=== PATIENT | female | born 1965 | race Caucasian/White ===

== ENCOUNTER 2019-04-26 16:11 | Emergency (ER) | payer BC ==
[~2019-04-26] VITALS: Ht 172.7 cm; Wt 95.3 kg
--- NOTE | 2019-04-26 16:20 | NUR ---
PATIENT WAS MSE BY DR REICH IN ROOM 01A.
[2019-04-26] MEDS ORDERED: MORPHINE SULFATE 4 MG/1 ML DISP.SYRIN ONE (16:27)
[2019-04-26] MEDS ORDERED: ONDANSETRON 4 MG/2 ML VIAL ONE (16:27)
[2019-04-26] MEDS ORDERED: MORPHINE SULFATE 2 MG/1 ML DISP.SYRIN IV ONE (16:30)
[2019-04-26] MEDS ORDERED: ONDANSETRON 4 MG/2 ML VIAL IV ONE (16:30)
[2019-04-26] MEDS ORDERED: HYDROMORPHONE 1 MG/1 ML DISP.SYRIN ONE (16:52)
[2019-04-26] MEDS ORDERED: HYDROMORPHONE 1 MG/1 ML DISP.SYRIN IV ONE (17:00)
[2019-04-26] MEDS ORDERED: KETOROLAC TROMETHAMINE 30 MG INJ IVP ONE (17:15)
[2019-04-26] MEDS ORDERED: KETOROLAC TROMETHAMINE 30 MG INJ ONE (17:15)
--- NOTE | 2019-04-26 17:50 | NUR ---
pt was d/c'D to home after dr casey evaluation. d/c instructions given to the pt.
[2019-04-26 17:52] VITALS: BP 139/75
== END 2019-04-26 17:53 | disposition home or self-care (01) ==
LOC: ER 16:15
DX: S42.201A Unspecified fracture of upper end of right humerus, initial encounter for closed fracture (principal); W22.8XXA Striking against or struck by other objects, initial encounter; Y93.61 Activity, american tackle football; Y92.89 Other specified places as the place of occurrence of the external cause; Y99.8 Other external cause status
CPT/HCPCS: 29105; 73030; 96374; 96375; 99283; J1170; J1885; J2270; J2405; A4663; J7030

== ENCOUNTER 2019-05-03 19:32 | Emergency (ER) | payer BC ==
[~2019-05-03] VITALS: Ht 172.7 cm; Wt 95.3 kg
[2019-05-03] MEDS ORDERED: ONDA4TAB5 PO (19:52)
[2019-05-03] MEDS ORDERED: ONDANSETRON 4 MG/2 ML VIAL IV ONE (20:00)
[2019-05-03] MEDS ORDERED: IV NORMAL SALINE 1000 ML BAG IV ONE (20:00)
[2019-05-03] MEDS ORDERED: ONDANSETRON 4 MG/2 ML VIAL ONE (20:04)
[2019-05-03 20:16] LABS: BASOPHILS % (AUTO) 0.8 % (0.0-2.0); EOSINOPHILS % (AUTO) 0.1 % (0.0-7.0); HEMATOCRIT 37.7 % (31.2-41.9); HEMOGLOBIN 12.6 g/dL (10.9-14.3); LYMPHOCYTES # (AUTO) 0.8 K/uL (20.0-40.0); LYMPHOCYTES % (AUTO) 14.9 % (20.5-51.5); MEAN CORPUSCULAR HEMOGLOBIN 31.3 uug (24.7-32.8); MEAN CORPUSCULAR HGB CONC 33 g/dL (32.3-35.6); MEAN CORPUSCULAR VOLUME 93.9 fL (75.5-95.3); MONOCYTES # (AUTO) 0.8 K/uL (2.0-10.0); NEUTROPHILS # (AUTO) 3.6 K/uL (1.8-8.9); NEUTROPHILS % (AUTO) 69.2 % (38.5-71.5); PLATELET COUNT (AUTO) 216 K/uL (179-408); RED BLOOD CELL COUNT(AUTO) 4.01 MIL/uL (3.63-4.92); WHITE BLOOD COUNT (AUTO) 5.1 K/uL (3.8-11.8)
[2019-05-03 20:29] LABS: BAND % (MANUAL) 5 % (0-10); LYMPHOCYTES % (MANUAL) 14 % (20-40); MONOCYTES % (MANUAL) 13 % (2-10); NEUTROPHILS % (MANUAL) 68 % (42-75)
[2019-05-03 20:30] LABS: BILIRUBIN,DIRECT 0.2 mg/dL (0.0-0.2); CREATININE 1.1 mg/dL (0.6-1.3); POTASSIUM 3.4 mmol/L (3.5-5.1); TOTAL PROTEIN, SERUM 7.4 g/dL (6.4-8.2)
[2019-05-03] MEDS ORDERED: diphenhydrAMINE 50 MG/1 ML VIAL IV ONE (20:45)
[2019-05-03] MEDS ORDERED: METOCLOPRAMIDE HCL 10 MG/2 ML VIAL IV ONE (20:45)
[2019-05-03] MEDS ORDERED: METOCLOPRAMIDE HCL 10 MG/2 ML VIAL ONE (20:51)
[2019-05-03] MEDS ORDERED: diphenhydrAMINE 50 MG/1 ML VIAL ONE (20:51)
--- NOTE | 2019-05-03 22:03 | NUR ---
IV removed. Catheter intact and site benign. Pressure and 4x4 gauze applied to site. No bleeding noted.
--- NOTE | 2019-05-03 22:03 | NUR ---
Patient discharged to home in stable conditon. Written and verbal after care instructions given. Patient verbalizes understanding of instructions. Pt walked out of ER in stable condition with spouse who will drive pt home. Pt appears in no distress. Vital signs stable. Respirations even + unlabored. Pt states she feels better.
[2019-05-03 22:07] VITALS: BP 125/81
== END 2019-05-03 22:07 | disposition home or self-care (01) ==
LOC: ER 19:34
DX: R11.2 Nausea with vomiting, unspecified (principal); Z79.899 Other long term (current) drug therapy
CPT/HCPCS: 36415; 80048; 80076; 83690; 85007; 85025; 96361; 96374; 96375; 99283; J1200; J2405; J2765; 70030-TC; A4663; J7030